=== PATIENT | female | born 1935 | race Caucasian/White ===

== ENCOUNTER 2020-07-23 08:12 | Emergency (ER) | payer MEDICARE, SELFPAY ==
--- NOTE | ~2020-07-23 | XR_ITS ---
XR foot RT min 3V DATE: 07/23/2020 08:55 INDICATION: Rolled foot. Bruising and pain TECHNIQUE: 4 views COMPARISON: None FINDINGS: There are recent distal fourth and fifth metatarsal shaft fractures with mild (approximatel y one cortical width) medial displacement and minimal overriding of the fragments at the fifth metata rsal fracture, mild medial displacement and approximately 20 degrees apex medial angulation at the fo urth metatarsal fracture site. Mild hallux valgus and bunion deformity. 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 There is cortical avulsion fracture of the distal lateral aspect of the calcaneus. Distal Achilles tendon calcifications. Diffuse osteopenia. IMPRESSION: Distal shaft fractures of the fourth and fifth metatarsal bones Cortical avulsion fracture of the distal lateral aspect of the calcaneus Reviewed, dictated and finalized at location B.
[2020-07-23 08:22] VITALS: BP 149/78; PULSE 101; RESP 18; TEMP 36.3; O2SAT 97
--- NOTE | 2020-07-23 09:18 | ED.LOWEXIN ---
HPI - Extremity Injury (Lower) General Chief Complaint: Extremity Injury, Lower Stated Complaint: right ankle/foot injury Time Seen by Provider: 07/23/20 08:35 Source: patient and RN notes reviewed Mode of arrival: ambulatory Limitations: no limitations History of Present Illness HPI Narrative: Patient presents today complaining of an injury to her right foot. 3 days ago she was sitting at home in her chair. She did not know that her right foot was asleep when she went to stand, falling and possibly twisting her foot on the way down. She believes that she felt and heard a large pop. She reports mild pain today, but has been ambulatory at home since the injury. She does live at home alone as her a few years ago. She does not have any family in the area. States she lives in a trilevel home as well. Drove herself to express care today. She has not been taking any medication for symptoms prior to arrival. She does have some peripheral neuropathy for which she takes gabapentin, but denies any additional numbness or tingling in the affected foot. Pain increases with weightbearing. MD complaint: foot injury Related Data Home Medications Medication Instructions Recorded Confirmed gabapentin 100 mg PO BID 07/23/20 07/23/20 pravastatin 20 mg PO DAILY 07/23/20 07/23/20 Allergies Allergy/AdvReac Type Severity Reaction Status Date / Time clindamycin Allergy Rash Verified 07/23/20 08:51 Sulfa (Sulfonamide Allergy Swelling Verified 07/23/20 08:51 Antibiotics) eye dye AdvReac Swelling Uncoded 07/23/20 08:52 Review of Systems Review of Systems: Narrative: CONSTITUTIONAL: Denies body aches, fever, chills, or sweats. EYES: Denies visual changes, redness, or discharge. ENT: Denies rhinorrhea, congestion, sore throat, or otalgia. CARDIOVASCULAR: Denies chest pain, palpitations, or edema. RESPIRATORY: Denies cough or dyspnea. GASTROINTESTINAL: Denies abdominal pain, nausea, vomiting, or diarrhea. GENITOURINARY: Denies dysuria or hematuria. SKIN: Denies rash, itching, or wounds. MUSCULOSKELETAL: Denies back pain, or myalgia. + Right foot injury NEUROLOGIC: Denies headache, numbness, tingling, or weakness. PSYCH: Denies depression or anxiety. [facility] Past Medical History Medical History (Updated 07/23/20 @ 10:48 by Marina Lai, [facility], ) Hypercholesterolemia Peripheral neuropathy Comments At time of signature, I have reviewed and agree with nursing past medical, surgical, social and family history unless otherwise noted. Please see nursing chart for further information. There is no relevant family history pertinent to the presenting complaint Exam Narrative: Exam Narrative: GENERAL: Well-appearing, well-nourished, and in no acute distress. Appears younger than stated age. HEAD: Normocephalic, atraumatic. EYES: EOMI. No redness or drainage. Conjunctivae normal. ENT: Mucous membranes pink and moist. NECK: Normal AROM. CHEST: No respiratory distress. EXTREMITIES: Right foot: Most of the dorsum of the foot is covered in ecchymosis. It is mild to moderately edematous as well. No tenderness to the first or second metatarsal, but tenderness to the third through fifth metatarsals. No tenderness to the ankle. No tenderness to toes 1-3, but tenderness to toes 4 and 5. Distal sensation intact in all toes. Capillary refill normal. Pedal pulse normal. Posterior tibial pulse normal. Full range of motion of ankle and all toes without increased pain. SKIN: Warm, dry, no rash. Capillary refill normal. Normal skin turgor. NEURO: No focal deficits. Alert and oriented x3. Gait steady but guarded. PSYCH: Normal affect. No signs of depression or anxiety. Course Course Emergency Course: Patient states she has no family or friends in the area that could come pick her up if we place an OCL today on her right foot, so she has refused this. Discussed with her about going to [facility] in [place]
== END 2020-07-23 09:45 | disposition home or self-care (01) ==
PROVIDERS: Emergency Provider Nurse Practitioner; PCP Internal Medicine
DX: S92.341A Displaced fracture of fourth metatarsal bone, right foot, initial encounter for closed fracture (principal); S92.351A Displaced fracture of fifth metatarsal bone, right foot, initial encounter for closed fracture; S92.001A Unspecified fracture of right calcaneus, initial encounter for closed fracture; W19.XXXA Unspecified fall, initial encounter; E78.00 Pure hypercholesterolemia, unspecified; G62.9 Polyneuropathy, unspecified
CPT/HCPCS: 73630; 99213; G0463